=== PATIENT | male | born 1970 ===

== ENCOUNTER 2018-08-24 09:40 | Observation (INO) | payer BC, MEDICAID ==
[2018-08-24 10:54] LABS: BASO # 0.02 K/mm3 (0.0-2.0); BASO % 0.3 % (0.0-3.0); EOS # 0.2 (0.0-0.7); EOS % 2.5 % (1.5-5.0); HEMOGLOBIN 15.9 g/dL (14.0-18.0); LYMPH # 1.8 (1.2-3.4); LYMPH % 26.2 % (22.0-35.0); MEAN CELL VOLUME 87.5 fl (80.0-105.0); MEAN CORPUSCULAR HEMOGLOBIN 30.7 pg (25.0-35.0); MEAN CORPUSCULAR HGB CONC 35.1 g/dl (31.0-37.0); MEAN PLATELET VOLUME 10.1 fl (7.0-11.0); MONO # 0.4 (0.1-0.6); MONO % 6.1 % (1.0-6.0); RBC 5.18 10^6/uL (3.5-6.1); RED CELL DISTRIBUTION WIDTH 12.7 % (11.5-14.5); WHITE BLOOD COUNT 6.9 10^3/uL (4.5-11.0)
[2018-08-24 10:55] LABS: PH,URINE 6.5 (4.7-8.0); URINE BILIRUBIN NEGATIVE (NEGATIVE); URINE BLOOD NEGATIVE (NEGATIVE); URINE GLUCOSE (UA) NEGATIVE (NEGATIVE); URINE LEUKOCYTE ESTERASE NEGATIVE Leu/uL (NEGATIVE); URINE PROTEIN NEGATIVE mg/dL (<30 mg/dL); URINE UROBILINOGEN 0.2 E.U./dL (<1 E.U./dL)
[2018-08-24 11:00] LABS: URINE APPEARANCE CLEAR (CLEAR); URINE COLOR YELLOW (YELLOW)
[2018-08-24 11:02] LABS: INR 1.09; PARTIAL THROMBOPLASTIN TIME 33.1 Seconds (26.9-38.3); PROTHROMBIN TIME 12.3 SECONDS (9.4-12.5)
[2018-08-24 11:05] LABS: ALB/GLOB RATIO 1.4 (1.1-1.8); ALBUMIN 4.4 g/dL (3.0-4.8); ALT/SGPT 69 U/L (7-56); AST/SGOT 64 U/L (17-59); BLOOD UREA NITROGEN 12 mg/dL (7-21); CALCIUM 9.3 mg/dL (8.4-10.5); GFR NON-AFRICAN AMERICAN > 60; LIPASE 150 U/L (23-300)
--- NOTE | 2018-08-24 11:11 | RAD ---
Date of service: 08/24/2018 HISTORY: cp COMPARISON: No prior. TECHNIQUE: 1 view obtained. FINDINGS: LUNGS: No active pulmonary disease. PLEURA: No significant pleural effusion identified, no pneumothorax apparent. CARDIOVASCULAR: No aortic atherosclerotic calcification present. Normal cardiac size. No pulmonary vascular congestion. OSSEOUS STRUCTURES: No significant abnormalities. VISUALIZED UPPER ABDOMEN: Normal. OTHER FINDINGS: None. IMPRESSION: No active disease.
--- NOTE | 2018-08-24 11:13 | ED PDOC ---
Arrival/HPI - General Chief Complaint: High Blood Pressure Time Seen by Provider: 08/24/18 09:52 Historian: Patient - History of Present Illness Narrative History of Present Illness (Text): 08/24/18 11:09 47-year-old male with a history of hypertension presents today with left-sided chest pain radiating into the jaw and into the left arm. Patient states the pain was sudden sharp and the pain in the chest has resolved but he remains with pain radiating into the left arm. Patient is complaining of dizziness. Denies shortness of breath at present time but states when the pain came he felt extremely short of breath. Patient denies abdominal pain. No nausea vomiting diarrhea constipation. No generalized weakness. No no urinary symptoms or back pain. Patient states he has a history of hypertension and a prior history of smoking. Patient states about 5 years ago he had a cardiac catheterization. Patient admits to drinking daily. No other complaints Past Medical History - Provider Review Nursing Documentation Reviewed: Yes - Travel History Have you recently traveled outside [place] w/in the past 3 mons?: No - Infectious Disease Hx of Infectious Diseases: None - Cardiac Hx Cardiac Disorders: Yes Hx Hypertension: Yes - Pulmonary Hx Respiratory Disorders: No - Psychiatric Hx Substance Use: No - Anesthesia Hx Anesthesia Reactions: No Family/Social History - Physician Review Nursing Documentation Reviewed: Yes Family/Social History: Unknown Family HX Smoking Status: Unknown If Ever Smoked Hx Alcohol Use: No Hx Substance Use: No Allergies/Home Meds Allergies/Adverse Reactions: Allergies morphine Adverse Reaction (Verified 08/24/18 14:02) FATIGUE Review of Systems - Review of Systems Constitutional: absent: Fatigue, Fevers Respiratory: SOB. absent: Cough Cardiovascular: Chest Pain. absent: Palpitations Gastrointestinal: absent: Abdominal Pain, Nausea, Vomiting Genitourinary Male: absent: Dysuria, Frequency, Urinary Output Changes Musculoskeletal: Arthralgias (left sided jaw pain). absent: Back Pain, Neck Pain Skin: absent: Rash, Pruritis Neurological: Dizziness. absent: Headache Psychiatric: absent: Anxiety, Depression, Suicidal Ideation Physical Exam Vital Signs Reviewed: Yes Vital Signs Temp Pulse Resp BP Pulse Ox 08/24/18 10:00 98.2 F 88 18 161/111 H 100 Temperature: Afebrile Blood Pressure: Hypertensive Pulse: Regular Respiratory Rate: Normal Appearance: Positive for: Well-Appearing, Non-Toxic, Comfortable Pain Distress: None Mental Status: Positive for: Alert and Oriented X 3 - Systems Exam Head: Present: Atraumatic Pupils: Present: PERRL Extroacular Muscles: Present: EOMI Mouth: Present: Moist Mucous Membranes Neck: Present: Normal Range of Motion Respiratory/Chest: Present: Clear to Auscultation, Good Air Exchange. No: Respiratory Distress, Accessory Muscle Use Cardiovascular: Present: Regular Rate and Rhythm, Normal S1, S2. No: Murmurs Abdomen: No: Tenderness, Distention, Rebound, Guarding Back: Present: Normal Inspection. No: Midline Tenderness, Paraspinal Tenderness Upper Extremity: Present: Normal Inspection, Normal ROM. No: Swelling Lower Extremity: Present: Normal Inspection Neurological: Present: GCS=15 Skin: Present: Warm, Dry, Normal Color. No: Rashes Psychiatric: Present: Alert, Oriented x 3 Medical Decision Making ED Course and Treatment: 08/24/18 11:14 Pt with chest pain radiating to left jaw and left arm. elevated BP cbc; within normal limits cmp; within normal limits trop: Within normal limits ekg; normal sinus rhythm at [address] elevations QTC 459 cxr: No infiltrate no effusion no cardiomegaly asa po pt reassessment; patient resting comfortably in no distress. case discussed with Dr. Funez will Admit observational status to Tele for chest pain r/o acs. She would like to consult Dr. Freed impression; chest pain Admit observational status to remote tele Reassessment Condition: Re-examined, Improved - Lab Interpretations Lab Results: PT 12.3 SECONDS (9.4-12.5) 08/24/18 10:35 INR 1.09 08/24/18 10:35 APTT 33.1 Seconds (26.9-38.3) 08/24/18 10:35 Total Bilirubin 1.1 mg/dL (0.2-1.3) 08/24/18 10:35 AST 64 U/L (17-59) H 08/24/18 10:35 ALT 69 U/L (7-56) H 08/24/18 10:35 Alkaline Phosphatase 57 U/L (38-126) 08/24/18 10:35 Total Protein 7.5 g/dL (5.8-8.3) 08/24/18 10:35 Albumin 4.4 g/dL (3.0-4.8) 08/24/18 10:35 Globulin 3.2 gm/dL 08/24/18 10:35 Albumin/Globulin Ratio 1.4 (1.1-1.8) 08/24/18 10:35 Lipase 150 U/L (23-300) 08/24/18 10:35 Urine Color Yellow (YELLOW) 08/24/18 10:35 Urine Appearance Clear (CLEAR) 08/24/18 10:35 Urine pH 6.5 (4.7-8.0) 08/24/18 10:35 Ur Specific Ridott <= 1.005 (1.005-1.035) 08/24/18 10:35 Urine Protein Negative mg/dL (<30 mg/dL) 08/24/18 10:35 Urine Glucose (UA) Negative mg/dL (NEGATIVE) 08/24/18 10:35 Urine Ketones Negative mg/dL (NEGATIVE) 08/24/18 10:35 Urine Blood Negative (NEGATIVE) 08/24/18 10:35 Urine Nitrate Negative (NEGATIVE) 08/24/18 10:35 Urine Bilirubin Negative (NEGATIVE) 08/24/18 10:35 Urine Urobilinogen 0.2 E.U./dL (<1 E.U./dL) 08/24/18 10:35 Ur Leukocyte Esterase Negative Maki/uL (NEGATIVE) 08/24/18 10:35 - RAD Interpretation Radiology Orders: 08/24/18 10:12 CHEST PORTABLE [RAD] Stat Disposition/Present on Arrival - Present on Arrival Any Indicators Present on Arrival: No History of DVT/PE: No History of Uncontrolled Diabetes: No Urinary Catheter: No History of Decub. Ulcer: No History Surgical Site Infection Following: None - Disposition Have Diagnosis and Disposition been Completed?: Yes Diagnosis: Chest pain Disposition: HOSPITALIZED Disposition Time: 12:29 Patient Plan: Observation, Telemetry (remote) Condition: FAIR
[2018-08-24 11:16] LABS: TROPONIN I < 0.01 ng/mL
[2018-08-24 11:38] LABS: B-TYPE NATRIURETIC PEPTIDE < 11.1 pg/mL (0-450)
[2018-08-24 14:20] VITALS: BMI 29.9
[2018-08-24] MEDS ORDERED: Pneumococcal 23-Valent Vaccine IM ONE (14:20)
--- NOTE | 2018-08-24 19:01 | CARD ---
APPROVED REPORT Date of service: 08/24/2018 EKG Measurement Heart [id number] <Conclusion> Normal sinus rhythm Normal ECG
[2018-08-24 21:01] LABS: IRON 167 ug/dL (45-180)
[2018-08-24 21:11] LABS: % IRON SATURATION 50 % (20-55); TOTAL IRON BINDING CAPACITY 331 ug/dL (261-462)
--- NOTE | 2018-08-25 03:03 | HP ---
DATE OF EXAM: 08/24/2018 The patient was seen and examined at the bedside on 08/24/2018. CHIEF COMPLAINT: High blood pressure. HISTORY OF PRESENT ILLNESS: Mr. Milton Chapin is a 47-year-old male with history of hypertension, came with left-sided chest pain radiating into the jaw and into the left arm. The patient states the pain was sudden sharp and pain in the chest, actually resolved when I saw the patient. was standing on the bedside. The patient is complaining of dizziness, mild shortness of breath. No fever. No chills. No hematuria. No hematochezia. No nausea, vomiting, or diarrhea. No constipation. No generalized weakness. No urinary symptoms or back pain. He has a history of hypertension, prior history of smoking. According to the patient 5 years ago, he had cardiac catheterization. He admits to drinking daily. PAST MEDICAL HISTORY: Hypertension. FAMILY HISTORY: Father and mother noncontributory. HABITS: No ethanol. History of smoking. Alcohol, no. Substance abuse, no. ALLERGIES: MORPHINE. REVIEW OF SYSTEMS: The patient was seen and examined at the bedside in his room. is standing on the bedside. No fever. No chills. No fatigue. No shortness of breath. At this moment, no chest pain or palpitation. No abdominal pain. No nausea or vomiting. No dysuria, frequency, urinary output changes. Left-sided jaw pain. No back pain, neck pain, pruritus, rash, dizziness, or depression. No suicidal or homicidal ideation. PHYSICAL EXAMINATION: VITAL SIGNS: Temperature 97.6, pulse 90, respiratory rate 17, and blood pressure 147/101. HEENT: Head; normocephalic and atraumatic. Eyes; PERRLA. Extraocular muscles intact. Conjunctivae clear. Nose patent. Mucous membranes moist. NECK: Supple. No carotid bruits, JVD, or thyromegaly. CHEST: Bilaterally symmetrical. HEART: S1 and S2 positive. LUNGS: Clear to auscultation. ABDOMEN: Soft. Bowel sounds present. No organomegaly. EXTREMITIES: No edema. No cyanosis. NEUROLOGICAL: The patient is awake and alert. Moving all four extremities. No focal deficits. LABORATORY DATA: White blood cells 6.9, hemoglobin 15.9, hematocrit 45.3, and platelets 205. Sodium 139, potassium 4.1, BUN 12, creatinine 0.7, glucose 119, AST 64, and ALT 69. Troponin x2 is less than 0.01. ASSESSMENT AND PLAN: Mr. Milton Chapin is a 47-year-old male with hyperglycemia, abnormal liver function test, came with chest pain, high blood pressure, and left chest pain. The patient has history of hypertension, readmitted the patient, and did cardiac enzymes. Cardiology consult called. Gastrointestinal and deep venous thrombosis prophylaxes. Aspirin given, amlodipine given by Dr. Freed. Pneumococcal vaccine given. We will follow up. Caroilne Funez MD MTDD
[2018-08-25 07:21] LABS: HEMOGLOBIN 15.7 g/dL (14.0-18.0); MEAN CELL VOLUME 87.5 fl (80.0-105.0); MEAN CORPUSCULAR HEMOGLOBIN 30.2 pg (25.0-35.0); MEAN CORPUSCULAR HGB CONC 34.5 g/dl (31.0-37.0); MEAN PLATELET VOLUME 10.1 fl (7.0-11.0); RBC 5.2 10^6/uL (3.5-6.1); RED CELL DISTRIBUTION WIDTH 12.6 % (11.5-14.5); WHITE BLOOD COUNT 6.7 10^3/uL (4.5-11.0)
[2018-08-25 07:38] LABS: BLOOD UREA NITROGEN 15 mg/dL (7-21); CALCIUM 9.2 mg/dL (8.4-10.5); GFR NON-AFRICAN AMERICAN > 60
[2018-08-25 13:10] LABS: FOLATE 6.9 ng/mL
--- NOTE | 2018-08-25 18:15 | CARD ---
APPROVED REPORT Date of service: 08/25/2018 EXAM: Two-dimensional and M-mode echocardiogram with Doppler and color Doppler. INDICATION Hypertension/HCVD Chest Pain 2D DIMENSIONS Left Atrium (2D)3.4 (1.6-4.0cm)IVSd1.1 (0.7-1.1cm) LVDd4.2 (3.9-5.9cm)PWd1.1 (0.7-1.1cm) LVDs2.8 (2.5-4.0cm)FS (%) 31.8 % LVEF (%)60.3 (>50%) M-Mode DIMENSIONS Aortic Root3.60 (2.2-3.7cm)Aortic Cusp Exc.2.20 (1.5-2.0cm) Aortic Valve AoV Peak Kotvpqbw644.0cm/Graciela Peak GR.9mmHg Mitral Valve MV E Kfqactkt20.3cm/sMV A Ashltrjt80.3cm/sE/A ratio0.9 TDI Lateral E' Peak V8.68cm/sMedial E' Peak V7.12cm/sE/Lateral E'8.1 E/Medial E'9.9 Pulmonary Valve PV Peak Xelovmxx46.5cm/sPV Peak Grad.2mmHg Tricuspid Valve TR Peak Kbquhuiu991nj/sRAP RGRBWKCF78ajPdRL Peak Gr.19mmHg [id number] LEFT VENTRICLE The left ventricle is normal size. The left ventricular function is normal. The left ventricular ejection fraction is within the normal range.Ej>Fr: 60%. RIGHT VENTRICLE The right ventricle is normal size. The right ventricular systolic function is normal. ATRIA The left atrium size is normal. The right atrium size is normal. AORTIC VALVE The aortic valve is normal in structure. There is trace aortic regurgitation. MITRAL VALVE The mitral valve is normal in structure. Mitral regurgitation is trace. TRICUSPID VALVE The tricuspid valve is normal in structure. There is trace tricuspid regurgitation. PERICARDIAL EFFUSION There is no pericardial effusion. <Conclusion> The left ventricle is normal size. The left ventricular function is normal. The left ventricular ejection fraction is within the normal range.Ej>Fr: 60%. The right ventricle is normal size. The right ventricular systolic function is normal. The left atrium size is normal. The right atrium size is normal. The aortic valve is normal in structure. There is trace aortic regurgitation. The mitral valve is normal in structure. Mitral regurgitation is trace. The tricuspid valve is normal in structure. There is trace tricuspid regurgitation.RVSP 29mm Hg. There is no pericardial effusion.
--- NOTE | 2018-08-25 20:47 | PN ---
This case was discusssed with Dr. Funez, she is inagreement with treatment plan. DATE: 08/25/2018 SUBJECTIVE: This is a 47-year-old male came in with chest pain without radiation that ocurred at rest and was not relieved, shortness of breath, headache and dizziness. The patient has a past medical history of hypercholesterolemia, hypertension, obesity, and nicotine dependent. I saw the patient today at bedside. was at bedside with the patient. The patient denies dizziness. Denies shortness of breath. Reports no chest pain today. Denies abdominal pain, tenderness, hematuria, fever, chills, or hematochezia. PHYSICAL EXAMINATION: GENERAL: The patient appears in no acute distress. VITAL SIGNS: Temperature 97.5, pulse 88, blood pressure 128/89, respiratory rate 18, and sat 100% on room air. HEENT: Normocephalic and atraumatic. PERRLA. Mucous membranes moist. NECK: Supple. Normal inspection. RESPIRATORY: Clear to auscultation. No wheezing. No rhonchi. CARDIOVASCULAR: S1 and S2. No murmur. No gallop. No JVD. ABDOMEN: Soft and nontender. No guarding. No tenderness. Positive bowel sounds. SKIN: Intact. No edema. No cyanosis. EXTREMITIES: Moving all extremities. NEUROLOGIC: The patient is alert and oriented x3. MEDICATIONS: The patient is on Norvasc 10 mg daily, aspirin 81 daily, Pepcid 40 mg p.o. at bedtime, and TriCor 145 mg p.o. daily. LABORATORY DATA: White blood cells 6.7, hemoglobin 15.7, hematocrit 45.5, and platelet count 200. INR 1.09 and PT 12.3. Chemistry; sodium 138, potassium 4.1, BUN 15, and creatinine 0.9. GFR is 60. Triglycerides 424. ASSESSMENT AND PLAN: This is a 47-year-old male who came in with chest pain, shortness of breath, fatigue, dizziness, headache, and hypertension. The patient is on Norvasc 10 mg daily, aspirin 81, and TriCor 145. The patient's triglycerides are 424, he is taking fenofibrate. Cardiology and Pulmonology is on the case. We will follow up with labs in a.m. once he is cleared by Cardiology. We will look forward to discharge the patient. Follow up the patient in the office. ALL ABOVE NOTED , AGREED ALL ABOVE , EDUCATION DONE Louis Pierce APN Caroline Funez MD MARISA
--- NOTE | 2018-08-25 22:30 | CON ---
DATE: 08/25/2018 LOCATION: The patient is in room 370, bed 2. REASON FOR CONSULTATION: Chest pain and hypertension. HISTORY OF PRESENT ILLNESS: The patient is a 47-year-old male admitted with the history that he had sudden onset of sharp chest pain which was on the left side that radiated to the left arm and left side of the neck. Denies sweating, nausea, or vomiting associated with this pain. Denies any prior exertional chest pains. He says that he was found to have hypertension. The patient also has history of gout in the past. PAST MEDICAL HISTORY: Hypertension. The patient has a surgery on the right shoulder. PERSONAL HISTORY: Denies smoking; denies drinking. FAMILY HISTORY: Not significant. ALLERGY: THE PATIENT IS ALLERGIC TO MORPHINE. HE SAYS ONCE HE GOT MORPHINE, HE BECAME VERY DROWSY AND VERY DEEP SLEEP. REVIEW OF SYSTEMS: All the systems reviewed, positives mentioned in the history; others were negative. HOME MEDICATIONS: The patient was not taking any medicines at home. PHYSICAL EXAMINATION: The patient on examination; VITAL SIGNS: The patient's blood pressure in the emergency room was 147/101; the patient received Norvasc 10 mg and his blood pressure today is 134/88, respiration 20, pulse 85, and temperature 97.5. HEENT: Head is normocephalic. Eyes; pupils normal. Conjunctivae normal. Nose and throat normal. NECK: JVP low. Carotids equal. THORAX: AP diameter normal. LUNGS: Clear. CARDIOVASCULAR: S1 and S2. ABDOMEN: Soft. No tenderness. No organomegaly. Bowel sounds normal. EXTREMITIES: No clubbing. No cyanosis. LABORATORY DATA: Lab shows; WBC 6.7, hemoglobin 15.7, hematocrit 45.5, and platelet 200. Sodium 138, potassium 4.1, BUN 15, creatinine 0.9, and random glucose 134. Calcium 9.2, triglyceride 424, cholesterol 192, LDL 110, HDL 33. Chest x-ray; no active disease. EKG showed normal sinus rhythm, normal EKG. DIAGNOSES: Chest pain and hypertension. PLAN: The patient is on amlodipine 10 mg daily and Pepcid 40 mg daily. We will order echocardiogram and nuclear stress test. The patient's triglyceride is high; if it remains high, then the patient will need medication for that. We will follow with you. Timmy Freed MD [facility] # [id number]
[2018-08-26 08:33] VITALS: RESP 20; TEMP 97.9; O2SAT 97
--- NOTE | 2018-08-26 09:09 | CP.PCM.PN ---
Subjective - Date & Time of Evaluation Date of Evaluation: 08/26/18 Time of Evaluation: 06:54 - Subjective Subjective: Awake, alert, no distress Reason for consultation and follow up: Cardiac evaluation of chest pain and uncontrolled hypertension. History of hypertension and gout. Seen and examined by me and Dr. Celis Objective - Vital Signs/Intake and Output Vital Signs (last 24 hours): Temp Pulse Resp BP Pulse Ox 97.9 F 82 20 131/84 97 08/26/18 08:32 08/26/18 08:32 08/26/18 08:32 08/26/18 08:32 08/26/18 08:32 Intake and Output: 08/26/18 08/26/18 06:59 18:59 Intake Total 240 Output Total 4 Balance 236 - Medications Medications: Current Medications Amlodipine Besylate (Norvasc) 10 mg PO DAILY [facility] Last Admin: 08/25/18 09:48 Dose: 10 mg Aspirin (Ecotrin) 81 mg PO DAILY [facility] Last Admin: 08/25/18 09:48 Dose: 81 mg Famotidine (Pepcid) 40 mg PO HS [facility] Last Admin: 08/25/18 21:01 Dose: 40 mg Fenofibrate (Tricor) 145 mg PO DAILY [facility] Last Admin: 08/25/18 14:21 Dose: 145 mg - Labs Labs: 08/25/18 07:00 08/25/18 07:00 PT 12.3 SECONDS (9.4-12.5) 08/24/18 10:35 INR 1.09 08/24/18 10:35 APTT 33.1 Seconds (26.9-38.3) 08/24/18 10:35 - Constitutional Appears: Non-toxic, No Acute Distress - Head Exam Head Exam: NORMAL INSPECTION, NORMOCEPHALIC - Eye Exam Eye Exam: Normal appearance Pupil Exam: NORMAL ACCOMODATION - ENT Exam ENT Exam: Mucous Membranes Moist, Normal Exam - Respiratory Exam Respiratory Exam: Decreased Breath Sounds, Clear to Ausculation Bilateral, NORMAL BREATHING PATTERN - Cardiovascular Exam Cardiovascular Exam: REGULAR RHYTHM, +S1, +S2 - GI/Abdominal Exam GI & Abdominal Exam: Soft, Normal Bowel Sounds - Extremities Exam Extremities Exam: Full ROM, Normal Capillary Refill - Neurological Exam Neurological Exam: Alert, Awake, Oriented x3 - Psychiatric Exam Psychiatric exam: Normal Affect, Normal Mood - Skin Skin Exam: Dry, Normal Color, Warm Assessment and Plan - Assessment and Plan (Free Text) Assessment: A 47 year old male who came in to the ER due to left-sided chest pain radiating into the jaw and into the left arm. History of hypertension, gout,right shoulder surgery, obesity,and smoking. Troponin level negative. EKG showed normal sinus rhythm, no ischemia. Chest X ray unremarkable. Echo done and showed LVEF 60 %, trace aortic, tricuspid and mitral regurgitation, RVSP 29 mmHg. Atypical chest pain. For stress test today. No distress. Plan: Denies chest pain now For stress test today Heart rate stable Blood pressure controlled On Norvasc 10 mg daily,ASA 81 mg daily, Tricor 145 mg daily Continue current treatment Continue current medications Weight reduction Further recommendations after stress test Will follow up Plan and treatment discussed with Dr. Celis
[2018-08-26 11:13] VITALS: PULSE 94
[2018-08-26 12:46] VITALS: BP 135/99
--- NOTE | 2018-08-26 15:45 | CARD ---
APPROVED REPORT Date of service: 08/26/2018 Protocol: STORM Test Type: Sestamibi Stress Test Attending Physician: Dr. Timmy Freed Referring Physician: Dr. Caroline Funez Test Indications: Chest Pain Height:5 ft 5 in Weight:180lbs Medications: Norvasc, Aspirin, Pepcid, Tricor Medical History: 47 year old male with a history of HTN, gout, right shoulder surgery Target HR: 171 bpm Resting ECG: RSR. Non Specific ST_T Changes. Resting Heart Rate: 93 bpm Resting Blood Pressure: 132/80mmHg Submaximum (85%): 145 bpm POST EXERCISE Reason for Termination: Fatigue Target HR: No Max HR: 157 bpm 91% of Maximum Predicted HR: 171 bpm Exercise duration: 10:10 min:sec, 4 Stage Exercise capacity: 11.9METs Max Blood Pressure: 160/100mmHg Blood Pressure response to exercise: normal resting BP - appropriate response Heart Rate response to exercise: appropriate Chest Pain: No, none Angina index: 0 Arrhythmia: No, none ST Change: No, none Deviation: 0 mm TEST SUMMARY [id number]/.0. [id number]/80.0. EXERCISESTAGE 103:[id number]/92.0. EXERCISESTAGE 203:[id number]/90.0. EXERCISESTAGE 303:[id number]/100.0. EXERCISESTAGE 401:[id number]/100.0. [id number]/80.0. INTERPRETATION Stress EKG Conclusion: FMYOVIEW NUCLEAR STRESS TEST STOPPED AFTER 10 MINUTES AND 10 SECONDS OF STORM PROTOCOL DUE TO FATIGUE. PATIENT ACHIEVED 93% OF PREDICTED HEART RATE. NO CHEST PAIN. NO ADDITIONAL ST-T CHANGES. NUCLEAR SCAN REPORT PENDING. Signed by Timmy Freed Electronically Approved: 08/26/2018 11:40:14 EXAM: Myocardial Perfusion REST/STRESS Stress Test Type: Exercise Treadmill Imaging Protocol The imaging protocol used to acquire images was Rest Tc-99m/stress Tc-99m 1 day Rest Spect myocardial perfusion imaging was performed in supine position 45 minutes following the injection of 10.3 mCi of Tc-99 Myoview. At peak stress, the patient was injected intravenously with 30.2mCi of Tc-99 tetrofosmin after an exercise time of 10 minutes and 10 seconds. Gated Stress Spect was performed 70 minutes after intravenous Tc-99 Myoview injection. The images were gated to evaluate regional wall motion and calculate ventricular ejection fraction.Images were reconstructed using backfilter projection method in short horizontal and verticle long axis. Spect slices were generated. LV Perfusion The quality of the study is good. The left ventricle is normal in size. The right ventricle is unremarkable. The lung uptake is within normal limits. The distribution of tracer reveals normal uptake pattern throughout the LV myocardium on the stress study. The rest myocardial perfusion study shows no significant change. Wall Motion Wall motion study shows good contractility of the left ventricle. LVEF = 70%. Conclusion 1. Normal SPECT myocardial perfusion study. 2. Normal gated wall motion of the left ventricle.
== END 2018-08-26 16:04 | disposition home or self-care (01) ==
LOC: ED 09:40 → ERH 12:29 → 3RSO 14:01
PROVIDERS: ADMIT Internal Medicine; ATTEND Internal Medicine
DX: R07.89 Other chest pain (principal); I10 Essential (primary) hypertension; E78.00 Pure hypercholesterolemia, unspecified; M10.9 Gout, unspecified; E66.9 Obesity, unspecified; Z68.29 Body mass index [BMI] 29.0-29.9, adult; Z87.891 Personal history of nicotine dependence
CPT/HCPCS: 36415; 71045; 78452; 80048; 80053; 80061; 81003; 82550; 82607; 82746; 83036; 83540; 83550; 83615; 83690; 83735; 83880; 84443; 84484; 85025; 85027; 85610; 85730; 93005; 93017; 93306; 99285; A9502; G0378